=== PATIENT | female | born 1970 | race Caucasian/White ===

== ENCOUNTER 2018-08-25 01:34 | Emergency (ER) | payer OTHER ==
[~2018-08-25] VITALS: Ht 170.2 cm; Wt 77.1 kg
[~2018-08-25 01:34] MED LIST: ALBU8HFA4 INH; IBUP-1955 PO; SERT25TA PO
--- NOTE | 2018-08-25 01:56 | NUR ---
Pt provided urine sample, sent to lab. Dr. Mcbride at bedside for MSE.
[2018-08-25] MEDS ORDERED: PHENAZOPYRIDINE HCL 100 MG TABLET PO ONE (02:00)
[2018-08-25] MEDS ORDERED: PHENAZOPYRIDINE HCL 100 MG TABLET ONE (02:01)
[2018-08-25 02:13] LABS: *BILIRUBIN,URIN NEGATIVE (NEGATIVE); *BLOOD, URINE NEGATIVE (NEGATIVE); *CLARITY,URINE SLIGHTLY CLOUDY (CLEAR); *COLOR,URINE YELLOW (YELLOW); *KETONES,URINE TRACE (NEGATIVE); *PROTEIN,URINE NEGATIVE (NEGATIVE); *UROBILINOGEN,URINE 0.2 E.U./dl (NORMAL); LEUKOCYTE ESTERASE ,URINE NEGATIVE (NEGATIVE); NITRITE, URINE NEGATIVE (NEGATIVE); PH,URINE 5.5 (5.0-8.0); UGLUCOSE NEGATIVE (NEGATIVE)
[2018-08-25 02:23] LABS: RBC,URINE 0-3 /HPF (0-3); WBC,URINE 0-3 /HPF (0-3)
[2018-08-25 02:24] LABS: BACTERIA,URINE NONE SEEN /HPF (NONE SEEN); CALCIUM OXALATE CRYSTALS,UR MANY /HPF (NONE SEEN); SQUAMOUS EPITHELIAL CELL,UR FEW /HPF (NONE SEEN)
[2018-08-25 02:25] LABS: MUCUS,URINE FEW /LPF (0-FEW)
--- NOTE | 2018-08-25 02:34 | NUR ---
Patient discharged to home in stable conditon. Written and verbal after care instructions given. Patient verbalizes understanding of instructions. Pt ambulated out of ER with steady gait, no acute signs of distress, VSS, all belongings taken.
[2018-08-25 02:36] VITALS: BP 125/76
== END 2018-08-25 02:36 | disposition home or self-care (01) ==
LOC: ER 01:37
DX: R30.0 Dysuria (principal); I10 Essential (primary) hypertension; J45.909 Unspecified asthma, uncomplicated; F17.200 Nicotine dependence, unspecified, uncomplicated; Z88.2 Allergy status to sulfonamides
CPT/HCPCS: 87086; A4663

== ENCOUNTER 2019-02-08 15:03 | Emergency (ER) | payer OTHER ==
[~2019-02-08] VITALS: Ht 170.2 cm; Wt 79.4 kg
--- NOTE | 2019-02-08 16:47 | NUR ---
PATIENT SEEN BY DOCTOR CHAVES AT THIS TIME. PATIENT IS WAITING PATIENTLY FOR FURTHER TREATMENT
[2019-02-08] MEDS ORDERED: METOCLOPRAMIDE HCL 10 MG/2 ML VIAL IM ONE (17:30)
[2019-02-08] MEDS ORDERED: METOCLOPRAMIDE HCL 10 MG/2 ML VIAL ONE (17:41)
--- NOTE | 2019-02-08 17:57 | NUR ---
PT ELOPED, PT WAS SEEN WALKING OUT OF ER WITH STEADY GAIT.
== END 2019-02-08 17:59 | disposition left against medical advice (07) ==
LOC: ER 15:04
DX: R51 Headache (principal); H53.149 Visual discomfort, unspecified; R11.0 Nausea; I10 Essential (primary) hypertension; J45.909 Unspecified asthma, uncomplicated; F17.200 Nicotine dependence, unspecified, uncomplicated; Z88.2 Allergy status to sulfonamides; Z79.1 Long term (current) use of non-steroidal anti-inflammatories (NSAID); Z79.899 Other long term (current) drug therapy
CPT/HCPCS: 96372; 99283; J2765; A4663

== ENCOUNTER 2019-02-09 15:27 | Emergency (ER) | payer OTHER ==
[~2019-02-09] VITALS: Ht 170.2 cm; Wt 77.1 kg
--- NOTE | 2019-02-09 15:32 | NUR ---
Attempted to triage, pt was not found in ER lobby.
--- NOTE | 2019-02-09 15:51 | NUR ---
CHARISMA WYMAN AT BEDSIDE FOR MSE.
--- NOTE | 2019-02-09 15:58 | NUR ---
Patient discharged to home in stable conditon. Written and verbal after care instructions given. Patient verbalizes understanding of instructions. ALL BELONGINGS W/ PT. PT SELF-AMBULATED W/O DIFFICULTY.
[2019-02-09 15:59] VITALS: BP 131/89
== END 2019-02-09 16:00 | disposition home or self-care (01) ==
LOC: ER 15:28
DX: J20.9 Acute bronchitis, unspecified (principal); I10 Essential (primary) hypertension; J45.909 Unspecified asthma, uncomplicated; F17.200 Nicotine dependence, unspecified, uncomplicated; Z88.2 Allergy status to sulfonamides; Z79.1 Long term (current) use of non-steroidal anti-inflammatories (NSAID); Z79.899 Other long term (current) drug therapy
CPT/HCPCS: A4663

== ENCOUNTER 2019-06-30 12:13 | Emergency (ER) | payer OTHER ==
[~2019-06-30] VITALS: Ht 170.2 cm; Wt 77.1 kg
--- NOTE | 2019-06-30 12:39 | NUR ---
Patient given written and verbal discharge instructions. Patient verbalizes understanding & compliance of instructions. Patient is ambulatory with brisk steady gait. Patient refuses offer of correction placement@this time. Patient was also given a list of available shelters in surrounding area.
== END 2019-06-30 12:41 | disposition home or self-care (01) ==
LOC: ER 12:15
DX: B86 Scabies (principal); I10 Essential (primary) hypertension; J45.909 Unspecified asthma, uncomplicated; F17.200 Nicotine dependence, unspecified, uncomplicated; Z88.2 Allergy status to sulfonamides; Z79.1 Long term (current) use of non-steroidal anti-inflammatories (NSAID); Z79.899 Other long term (current) drug therapy
CPT/HCPCS: A4663

== ENCOUNTER 2019-08-30 11:10 | Emergency (ER) | payer OTHER ==
[~2019-08-30] VITALS: Ht 170.2 cm; Wt 77.1 kg
[2019-08-30] MEDS ORDERED: OXCA300T15 PO (11:26)
[2019-08-30] MEDS ORDERED: TRAZ-182 PO (11:26)
--- NOTE | 2019-08-30 11:35 | NUR ---
Dr Dodd seen abd examined the pt.
[2019-08-30] MEDS ORDERED: KETOROLAC TROMETHAMINE 30 MG INJ ONE (11:38)
[2019-08-30 11:44] VITALS: BP 139/90
[2019-08-30] MEDS ORDERED: KETOROLAC TROMETHAMINE 30 MG INJ IM ONE (11:45)
--- NOTE | 2019-08-30 11:45 | NUR ---
Patient discharged to home in stable conditon. Written and verbal after care instructions given. Patient verbalizes understanding of instructions. Pt walked out of ER w/ steady gait.
== END 2019-08-30 11:46 | disposition home or self-care (01) ==
LOC: ER 11:14
DX: L03.317 Cellulitis of buttock (principal); M54.42 Lumbago with sciatica, left side; I10 Essential (primary) hypertension; J45.909 Unspecified asthma, uncomplicated; F41.9 Anxiety disorder, unspecified; F31.9 Bipolar disorder, unspecified; F17.200 Nicotine dependence, unspecified, uncomplicated; Z88.2 Allergy status to sulfonamides; Z79.899 Other long term (current) drug therapy; Z79.1 Long term (current) use of non-steroidal anti-inflammatories (NSAID)
CPT/HCPCS: 96372; 99283; J1885; A4663

== ENCOUNTER 2023-01-24 08:49 | Emergency (ER) | payer OTHER ==
[~2023-01-24] VITALS: Ht 167.6 cm; Wt 86.2 kg
[~2023-01-24 08:49] MED LIST changes: -IBUP-1955 PO; +OXCA300T15 PO; -SERT25TA PO; +TRAZ-182 PO
[2023-01-24] MEDS ORDERED: IBUP-1955 PO (09:11)
[2023-01-24] MEDS ORDERED: IBUPROFEN 600 MG TABLET PO ONE (09:15)
[2023-01-24] MEDS ORDERED: IBUPROFEN 600 MG TABLET ONE (09:39)
--- NOTE | 2023-01-24 09:44 | NUR ---
PT IS IN ROOM #2A. DR BANG EVALUATED THE PT.
--- NOTE | 2023-01-24 11:30 | NUR ---
PT WAS D/C'd TO HOME. D/C INSTRUCTIONS GIVEN TO THE PT BY DR BANG.
[2023-01-24 11:32] VITALS: BP 136/78
== END 2023-01-24 11:32 | disposition home or self-care (01) ==
LOC: ER 08:49
DX: S92.592A Other fracture of left lesser toe(s), initial encounter for closed fracture (principal); I10 Essential (primary) hypertension; J45.909 Unspecified asthma, uncomplicated; F17.210 Nicotine dependence, cigarettes, uncomplicated; Z88.2 Allergy status to sulfonamides; Z79.1 Long term (current) use of non-steroidal anti-inflammatories (NSAID); Z79.899 Other long term (current) drug therapy; W22.8XXA Striking against or struck by other objects, initial encounter; Y93.89 Activity, other specified; Y92.89 Other specified places as the place of occurrence of the external cause; Y99.8 Other external cause status
CPT/HCPCS: 73630; A4663